=== PATIENT | male | born 1940 | race Caucasian/White ===

== ENCOUNTER 2017-09-15 06:04 | Observation (INO) | payer OTHER ==
[2017-09-11 11:43] VITALS: BP 136/77
[2017-09-15] VITALS (28 sets, daily range): BP systolic 81–158; BP diastolic 36–80
[~2017-09-15] VITALS: Ht 175.3 cm; Wt 72.2 kg
[~2017-09-15 06:04] MED LIST: ASPI-555 PO; ATOR20TA65 PO; FOLI-74 PO; GLUC-148 PO; LOSA1TAB37 PO; VIT1CAPS25 PO
[2017-09-15] MEDS ORDERED: LACTATED RINGERS 1000ML 1,000 ML IV ONE (06:55)
[2017-09-15] MEDS ORDERED: MIDAZOLAM HCL 1 MG/ML 2ML VIAL ONE (07:20)
[2017-09-15] MEDS ORDERED: PROPOFOL 10 MG/ML 20ML VIAL IV ONE (07:20)
[2017-09-15] MEDS ORDERED: FENTANYL CITRATE PF 50 MCG/1 ML 5ML AMP IV ONE (07:20)
[2017-09-15] MEDS ORDERED: LIDOCAINE HCL 1% 20 ML VIAL ONE (07:37)
[2017-09-15] MEDS ORDERED: EPINEPHRINE 1 MG/ML AMPULE ONE (07:38)
[2017-09-15] MEDS ORDERED: LIDOCAINE HCL/EPINEPHRINE 50 ML VIAL IJ ONE (07:49)
[2017-09-15] MEDS ORDERED: DEXAMETHASONE SOD PHOSPHATE 10MG/ML 1ML VIAL ONE (08:47)
[2017-09-15] MEDS ORDERED: SUCCINYLCHOLINE 200MG/10ML SYR ONE (08:47)
[2017-09-15] MEDS ORDERED: GLYCOPYRROLATE 0.2 MG/ML 5 ML VIAL ONE (08:47)
[2017-09-15] MEDS ORDERED: ONDANSETRON HCL 4 MG/2 ML VIAL ONE (08:47)
[2017-09-15] MEDS ORDERED: MORPHINE-NS 50 MG/50 ML 50 ML IV PRN (11:00)
[2017-09-15] MEDS: DEXTROSE 5 % AND 0.9 % NACL 1,000 ML IV SCH ×2 (11:18→22:23)
[2017-09-15] MEDS ORDERED: ACETAMINOPHEN-CODEINE 300/30MG TAB PO PRN ×2 (11:30)
[2017-09-15] MEDS: CALCIUM CARBONATE 500 MG TABLET PO SCH ×2 (13:44→20:00)
[2017-09-15] MEDS: SULFAMETHOX-TMP DS 800/160 TAB PO SCH (20:00)
[2017-09-16] VITALS: BP 138/67
[2017-09-16 03:16] LABS: BASOPHILS % (AUTO) 0.1 % (0.0-5.0); HEMATOCRIT 39.6 % (42-54); LYMPHOCYTES % (AUTO) 4.7 % (21.0-51.0); MEAN CORPUSCULAR VOLUME 94.4 fL (79-99); MONOCYTES % (AUTO) 8.6 % (3.0-13.0); NEUTROPHILS % (AUTO) 86.6 % (40.0-77.0); PLATELET COUNT (AUTO) 149 K/uL (130-400); RED BLOOD CELL COUNT(AUTO) 4.19 MIL/uL (4.50-6.20); RED CELL DISTRIBUTION WIDTH 14.2 % (11.0-15.5); WHITE BLOOD COUNT (AUTO) 14.5 K/uL (4.8-10.8)
[2017-09-16 04:00] VITALS: BP 144/72
[2017-09-16 07:44] VITALS: BP 151/74
[2017-09-16] MEDS ORDERED: CHERRY PO SCH (09:00)
[2017-09-16] MEDS ORDERED: VIT C PO SCH (09:00)
[2017-09-16] MEDS ORDERED: [UNRECOGNIZED DRUG - OTHER] PO SCH (09:00)
[2017-09-16] MEDS ORDERED: GRP E PO SCH (09:00)
[2017-09-16] MEDS ORDERED: ASPIRIN 81 MG EC TAB PO SCH (09:00)
[2017-09-16] MEDS ORDERED: MULTIVITAMIN TABLET PO SCH (09:00)
[2017-09-16] MEDS ORDERED: ATORVASTATIN CALCIUM 20 MG TABLET PO SCH (09:00)
[2017-09-16] MEDS ORDERED: CELERY EX PO SCH (09:00)
[2017-09-16] MEDS: SULFAMETHOX-TMP DS 800/160 TAB PO SCH (09:20)
[2017-09-16] MEDS: CALCIUM CARBONATE 500 MG TABLET PO SCH (09:20)
[2017-09-16] MEDS ORDERED: LOSARTAN/HYDROCHLOROTHIAZIDE 50-12.5MG TABLET PO SCH (18:00)
== END 2017-09-16 10:17 | disposition home or self-care (01) ==
LOC: DAH 06:04 → DAHIP 06:05 → DAH 06:05 → 3AH 09:52 → 4AH 10:35
PROVIDERS: ADMIT Otolaryngology Plastic Surgery within the Head & Neck; ATTEND Otolaryngology Plastic Surgery within the Head & Neck
DX: E04.1 Nontoxic single thyroid nodule (principal); I10 Essential (primary) hypertension
CPT/HCPCS: 36415 ×2; 60240; 82310 ×2; 85025; 88307; 96365; A4452; G0378 ×28; J0330; J1100; J2250; J2270; J2405; J2704; J3010; J3490; J7120; J0171